=== PATIENT | female | born 1995 ===

== ENCOUNTER 2017-11-26 14:39 | Emergency (ER) | payer OTHER, BC ==
[~2017-11-26] VITALS: Ht 175.3 cm; Wt 90.0 kg
[2017-11-26] MEDS ORDERED: FLEXERIL PO ×2 (15:16→15:48)
[2017-11-26] MEDS ORDERED: MOTRIN800 MG PO ×2 (15:16→15:48)
[2017-11-26 15:43] VITALS: BP 132/82
== END 2017-11-26 15:43 | disposition home or self-care (01) | DRG 552 ==
LOC: ED 14:39
DX: S16.1XXA Strain of muscle, fascia and tendon at neck level, initial encounter (principal); M54.2 Cervicalgia; M54.6 Pain in thoracic spine; R51 Headache; S29.012A Strain of muscle and tendon of back wall of thorax, initial encounter; V49.49XA Driver injured in collision with other motor vehicles in traffic accident, initial encounter; Y92.488 Other paved roadways as the place of occurrence of the external cause